=== PATIENT | female | born 1940 | race Caucasian/White ===

== ENCOUNTER 2023-01-04 18:20 | Inpatient (IN) | payer MEDICARE, OTHER ==
[~2023-01-04] VITALS: Ht 162.6 cm; Wt 49.9 kg
--- NOTE | 2023-01-04 18:40 | NUR ---
Patient AOx4 able to express her concerns. Patient states she is in no pain at the moment. Discussed plan of care and the need to mintor. Patient verbalized agreement.
[2023-01-04] MEDS ORDERED: IV NS 0.9% 1,000 ML BAG IV ONE ×2 (19:00→21:00)
--- NOTE | 2023-01-04 19:20 | NUR ---
Pt is noted in bed alert, responsive as report is received from the off going nurse that Pt came from a [facility] , Pt had Syncopal Epicode while sitting in a couch with Blood Gulose was 166. Pt care continue as she is will be admitted.
--- NOTE | 2023-01-04 20:01 | NUR ---
COVID ANTIGEN SWAB COLLECTED AND SENT TO LAB.
[2023-01-04 20:08] LABS: BASOPHILS % (AUTO) 0.3 % (0.0-2.0); EOSINOPHILS % (AUTO) 1.6 % (0.0-6.0); HEMATOCRIT 42 % (33-45); HEMOGLOBIN 13.5 g/dL (11.5-14.8); LYMPHOCYTES # (AUTO) 1.5 K/uL (0.8-4.8); LYMPHOCYTES % (AUTO) 9.7 % (20.0-44.0); MEAN CORPUSCULAR HGB CONC 32 g/dl (31.0-36.0); MEAN CORPUSCULAR VOLUME 94 fL (82-100); MONOCYTES # (AUTO) 0.6 K/uL (0.1-1.30); MONOCYTES % (AUTO) 4.1 % (2.0-12.0); NEUTROPHILS # (AUTO) 12.8 K/uL (1.8-8.9); NEUTROPHILS % (AUTO) 84.3 % (43.0-81.0); PLATELET COUNT (AUTO) 236 K/uL (150-450); RED BLOOD CELL COUNT(AUTO) 4.48 MIL/uL (4.0-5.2); WHITE BLOOD COUNT (AUTO) 15.2 K/uL (4.3-11.0)
[2023-01-04 20:28] LABS: ALANINE AMINOTRANSFERASE 14 U/L (12-78); ALKALINE PHOSPHATASE 74 U/L (46-116); ASPARTATE AMINOTRANSFERASE 13 U/L (15-37); BILIRUBIN,DIRECT 0.1 mg/dL (0.0-0.2); BILIRUBIN,TOTAL 0.6 mg/dL (0.2-1.0); CARBON DIOXIDE 22 mmol/L (21-32); CHLORIDE 107 mmol/L (98-107); CREATININE 1.2 mg/dL (0.6-1.3); GLUCOSE 125 mg/dL (74-106); POTASSIUM 3.7 mmol/L (3.5-5.1); SODIUM SERUM 142 mmol/L (136-145); TOTAL PROTEIN, SERUM 7.7 g/dL (6.4-8.2); UREA NITROGEN, BLOOD 23 mg/dL (7-18)
--- NOTE | 2023-01-04 21:21 | NUR ---
0.9NS 500ML BOLUS GIVEN FOR LACTIC ACID 2.9 ORDERED BY MD. PT CARE CONTINUE AWAITS BED FOR ADMISSION.
[2023-01-04] MEDS ORDERED: MAG HYDROX/AL HYDROX/SIMETH 30 ML UDC PO PRN (21:30)
[2023-01-04] MEDS ORDERED: ZOLPIDEM TARTRATE 5 MG TABLET PO PRN (21:30)
[2023-01-04] MEDS ORDERED: Z GUARD REMEDY 4 OZ OINT TP PRN (21:30)
[2023-01-04] MEDS ORDERED: ACETAMINOPHEN 325 MG TABLET PO PRN (21:30)
[2023-01-04] MEDS ORDERED: MAGNESIUM HYDROXIDE 30 ML UDC PO PRN (21:30)
[2023-01-04] MEDS ORDERED: ONDANSETRON HCL/PF 4 MG/2 ML VIAL IVP PRN (21:30)
[2023-01-04 21:56] LABS: BILIRUBIN,URINE NEGATIVE (NEGATIVE); COLOR,URINE YELLOW (YELLOW); LEUKOCYTE ESTERASE ,URINE TRACE (NEGATIVE); NITRITE, URINE NEGATIVE (NEGATIVE); PROTEIN,URINE 2+ mg/dl (NEGATIVE); UGLUCOSE NEGATIVE (NEGATIVE); UROBILINOGEN,URINE 0.2 EU/dL (0.2)
--- NOTE | 2023-01-04 21:56 | NUR ---
Pt care continue as report is given to the 3rd Floor RN Coretta as she is going to Tele room 310-2.
[2023-01-04] MEDS ORDERED: ENOXAPARIN SODIUM 30 MG/0.3 ML DISP.SYRIN SQ SCH (22:00)
[2023-01-04 22:12] LABS: BACTERIA,URINE None seen /HPF (None Seen); MUCUS,URINE Few /LPF (None Seen); RBC,URINE 0-2 /HPF (0-2); SQUAMOUS EPITHELIAL CELL,UR 0-2 /HPF (None Seen)
--- NOTE | 2023-01-04 22:25 | NUR ---
Pt is noted off the unit to the 3rd Floor Room 310-2 as shec is been admitted. Pt care continue.
[2023-01-04 22:30] VITALS: BP 140/82
[2023-01-04] MEDS: IV 1/2NS 1000 ML 1,000 ML IV PRN (22:51)
--- NOTE | 2023-01-04 23:00 | NUR ---
WORKERS' COMPENSATION MAGISTRATEWRITER PRODUCER NOTE RECEIVED REPORT FROM SAIRA RODRIGUEZ. PATIENT WAS BROUGHT TO THE UNIT AT AROUND 2230 VIA STRETCHER, ACCOMPANIED BY ER STAFF. PATIENT WAS BROUGHT TO THE HOSPITAL D/T SYNCOPAL EPISODE. PATIENT IS ALERT AND ORIENTED X2. ABLE TO MAKE NEEDS KNOWN. AFEBRILE AND NOT IN ANY FORM OF ACUTE DISTRESS. BREATHING EVEN AND NON LABORED. PATIENT IS LEGALLY BLIND (BOTH EYES). DIRECTED TO ROOM 310-2. EXPLAINED ADMISSION PROCESS INCLUDING SKIN ASSESSMENT AND AGREED TO IT. PATIENT'S SKIN IS INTACT. WITH IV ACCESS ON LAC -. DUE MEDS GIVEN ORDERED. STARTED WITH IV HYDRATION ON 09/05 NS AT 75ML/HR. SAFETY MEASURES IN PLACE. KEPT BED IN LOCKED AND IN LOW POSITION. SIDE RAILS UP X2. ADVISED TO USE THE CALL LIGHT WHEN IN NEED OF ASSISTANCE. BED ALARM ON.
[2023-01-04] MEDS ORDERED: CEFTRIAXONE 1GM BAG (ER ONLY) 50 ML IV ONE (23:09)
[2023-01-04] MEDS: CEFTRIAXONE 1 G in IV D5W 50 ML IV SCH (23:12)
[2023-01-04 23:43] VITALS: BP 140/82
[2023-01-05] VITALS (8 sets, daily range): BP systolic 121–147; BP diastolic 51–91
[2023-01-05] MEDS ORDERED: CEFTRIAXONE 1 G in IV D5W 50 ML IV SCH ×2
--- NOTE | 2023-01-05 06:30 | NUR ---
HUMAN RESOURCES DIRECTOR CLOSING NOTE PATIENT IN BED, ASLEEP BUT EASY TO AROUSE AND RESPONSIVE. ABLE TO MAKE NEEDS KNOWN. AFEBRILE AND NOT IN ANY FORM OF ACUTE DISTRESS. BREATHING EVEN AND NON LABORED. NO C/O PAIN OR DISCOMFORT THROUGHOUT THE SHIFT. ON TELE MONITORING [facility] CURRENT READING OF [facility]. WITH IV ACCESS ON LAC 20G RUNNING WITH 1/2 NS AT 75ML/HR. MEDICATED ORDERED. CONTINUOUS ON IV ATB, MONITORED FOR ANY ADVERSE REACTION. SAFETY MEASURES IN PLACE. KEPT BED IN LOCKED AND IN LOW POSITION. SIDE RAILS UP X2. ADVISED TO USE THE CALL LIGHT WHEN IN NEED OF ASSISTANCE. ALL NURSING NEEDS ATTENDED. ENDORSED TO INCOMING SHIFT FOR CONTINUITY OF CARE.
[2023-01-05 07:22] LABS: BASOPHILS % (AUTO) 0.4 % (0.0-2.0); HEMATOCRIT 37 % (33-45); HEMOGLOBIN 12.1 g/dL (11.5-14.8); LYMPHOCYTES # (AUTO) 1.1 K/uL (0.8-4.8); LYMPHOCYTES % (AUTO) 8.1 % (20.0-44.0); MEAN CORPUSCULAR HGB CONC 33 g/dl (31.0-36.0); MEAN CORPUSCULAR VOLUME 92 fL (82-100); MONOCYTES # (AUTO) 0.6 K/uL (0.1-1.30); MONOCYTES % (AUTO) 4.6 % (2.0-12.0); NEUTROPHILS # (AUTO) 11.3 K/uL (1.8-8.9); NEUTROPHILS % (AUTO) 86.9 % (43.0-81.0); PLATELET COUNT (AUTO) 227 K/uL (150-450)
--- NOTE | 2023-01-05 07:25 | NUR ---
DURALUMIN MECHANIC OPENING NOTE Received pt in bed, awake. A/O x 2, able to make needs known, both eyes legally blind. No c/o pain/discomfort at this time. On room air, tolerating well. On phototypesetting equipment monitor with current reading SR-ST-98. IV access in the lac #20g with ongoing ivf of 1/2NS at 75 ml/hr, infusing well. Safety measures implemented: bed in lowest locked position, side rails up x 3, call light and tray table within easy reach. Will continue to monitor.
[2023-01-05 07:40] LABS: CALCIUM, SERUM 8.6 mg/dL (8.5-10.1); CREATININE 0.9 mg/dL (0.6-1.3); MAGNESIUM 1.9 mg/dL (1.8-2.4); PHOSPHORUS 3.5 mg/dL (2.5-4.9); POTASSIUM 3.4 mmol/L (3.5-5.1)
[2023-01-05] MEDS: PANTOPRAZOLE 40 MG TABLET.DR PO SCH (07:47)
[2023-01-05] MEDS: CEFTRIAXONE 1 G in IV D5W 50 ML IV SCH (09:32)
[2023-01-05] MEDS ORDERED: POTASSIUM CHLORIDE 20 MEQ POWDER PACKET PO ONE (10:00)
[2023-01-05] MEDS ORDERED: POLY17PO4 PO (10:32)
[2023-01-05] MEDS ORDERED: CHOL100043 PO (10:32)
[2023-01-05] MEDS ORDERED: AMLO-212 PO (10:32)
[2023-01-05] MEDS ORDERED: ASCO-340 PO (10:32)
[2023-01-05] MEDS ORDERED: MEGE40TA5 PO (10:32)
[2023-01-05] MEDS ORDERED: MULT-447 PO (10:32)
[2023-01-05] MEDS ORDERED: CLON0.1T PO (10:32)
[2023-01-05] MEDS ORDERED: MELA3TAB41 PO (10:32)
[2023-01-05] MEDS ORDERED: LEVO50TA8 PO (10:32)
[2023-01-05] MEDS ORDERED: ACET-868 PO (10:32)
[2023-01-05] MEDS: LEVOTHYROXINE SODIUM 88 MCG TABLET PO SCH (14:49)
[2023-01-05] MEDS: ENSURE ENLIVE CHOC 237 ML CAN PO SCH (17:18)
[2023-01-05] MEDS: IV 1/2NS 1000 ML 1,000 ML IV PRN (17:22)
--- NOTE | 2023-01-05 18:46 | NUR ---
MEDICAL DOCTOR MD/MEDICAL DIRECTOR CLOSING NOTE Pt resting in bed. A/O x 2, able to make needs known, both eyes legally blind. No c/o pain/discomfort within the shift. On room air, tolerating well. On playground monitor with current reading SR-83. IV access in the lfa #22g with ongoing ivf of 1/2NS at 75 ml/hr, infusing well. Needs attended. Safety measures implemented: bed in lowest locked position, side rails up x 3, call light and tray table within easy reach. Will endorse junior to golf ball cover treater.
--- NOTE | 2023-01-05 19:40 | NUR ---
fish processing supervisor Opening Note Received patient in bed; awake, a/o x 2. Able to make needs known. Both eyes legally blind. On room air; tolerating well. Breathing evenly and nonlabored. No c/o pain or discomfort at this time. On telemetry monitoring with current reading of SR-99 bpm. With IV access on left antecubital 22g; patent and intact running with 0.45% NS 1L regulated at 75 ml/hr; flushing well. Safety precautions implemented: call light and table within reach, side rails up x 3, bed in lowest locked position. Will continue to monitor throughout shift.
[2023-01-05] MEDS: ENOXAPARIN SODIUM 40 MG/0.4 ML DISP.SYRIN SQ SCH ×2 (21:53→21:59)
--- NOTE | 2023-01-05 22:03 | NUR ---
RN Note Patient refused to receive Lovenox 40 mg. Explained risk and benefits of following medical regimen x 3; still refused to receive medication.
[2023-01-06] VITALS (7 sets, daily range): BP systolic 127–167; BP diastolic 50–82
--- NOTE | 2023-01-06 02:30 | NUR ---
RN Note Patient refused 0200 Lactic acid blood draw. Will try to draw again at 0500. CN Geena aware.
--- NOTE | 2023-01-06 06:40 | NUR ---
riveting machine operator automatic Closing Note Patient in bed; awake, a/o x 2. Stable on room air. In no acute distress. Denies any pain or discomfort at this time. On telemetry monitoring with current reading of SR-84 bpm. With IV access on left antecubital 22g; intact and patent running with 0.45% NS 1L regulated at 75 ml/hr; flushes well. Safety precautions maintained: call light and table within reach, side rails up x 3, bed in lowest locked position. Endorsed to morning shift for continuity of care.
[2023-01-06] MEDS: IV 1/2NS 1000 ML 1,000 ML IV PRN (07:06)
--- NOTE | 2023-01-06 07:35 | NUR ---
INSTRUCTOR PROGRAMMABLE CONTROLLERS OPENING NOTE Received pt in bed, awake. A/O x 2, able to make needs known, both eyes legally blind. No c/o pain/discomfort at this time. On room air, tolerating well. On humane agent with current reading SR-ST- 86 . IV access in the lac #20g with ongoing ivf of 1/2NS at 75 ml/hr, infusing well. Safety measures implemented: bed in lowest locked position, side rails up x 3, call light and tray table within easy reach. Will continue to monitor.
[2023-01-06] MEDS: LEVOTHYROXINE SODIUM 88 MCG TABLET PO SCH (08:22)
[2023-01-06] MEDS: PANTOPRAZOLE 40 MG TABLET.DR PO SCH (08:22)
[2023-01-06] MEDS: ENSURE ENLIVE CHOC 237 ML CAN PO SCH ×2 (08:27→17:06)
[2023-01-06] MEDS: CEFTRIAXONE 1 G in IV D5W 50 ML IV SCH (10:04)
--- NOTE | 2023-01-06 18:31 | NUR ---
PLANT QUALITY MANAGERHORSE BREEDER NOTES PATIENT ON BED , A/OX2 , AND VERBALLY RESPONSIVE , LEGALLY BLIND ON ROOM AIR WITH NO SOB OR DISTRESS NOTED , NO C/ O OF PAIN AND DISCOMFORT, ALL DUE MEDS GIVEN ORDERED , PATIENT WAS SEEN BY DR HIGGINBOTHAM AND WITH ORDER FOR DISCHARGE TO THE FACILITY AT [facility] , DISCHARGE PAPERS PREPARED AND INSTRUCTIONS PROVIDED TO THE PATIENT AND REQUESTED TO HAVE A REGULAR DIET , AND TO THE RN IN FACILITY TO [place] , ALL BELONGINGS WERE TAKEN AND FOR WAS SIGNED BY TWO NURSES , SKIN IS INTACT , REPORT WAS GIVEN TO THE EMT AND PATIENT LEFT WITH NO C/O OF PAIN AND DISCOMFORT AND IN A STABLE CONDITION IV ACCES AND CONVEYOR WORKER REMOVED AND ID BADGE REMOVED , LEFT VIA GURNEY WITH EMT ,
== END 2023-01-06 18:33 | DRG 872 ==
LOC: ER 18:22 → TELE 21:45
PROVIDERS: ADMIT Student in an Organized Health Care Education/Training Program; ATTEND Internal Medicine
DX: A41.9 Sepsis, unspecified organism (principal); N39.0 Urinary tract infection, site not specified; E44.0 Moderate protein-calorie malnutrition; I50.30 Unspecified diastolic (congestive) heart failure; E87.20 Acidosis, unspecified; Z68.1 Body mass index [BMI] 19.9 or less, adult; R64 Cachexia; N17.9 Acute kidney failure, unspecified; R79.89 Other specified abnormal findings of blood chemistry; E86.0 Dehydration; Z20.822 Contact with and (suspected) exposure to COVID-19; F31.9 Bipolar disorder, unspecified; I11.0 Hypertensive heart disease with heart failure; Z66 Do not resuscitate; E03.9 Hypothyroidism, unspecified; R41.3 Other amnesia; F39 Unspecified mood [affective] disorder; R19.7 Diarrhea, unspecified; E87.6 Hypokalemia; H54.8 Legal blindness, as defined in USA
CPT/HCPCS: 36415; 70450-TC; 71045-TC; 80048-TC; 80076-TC; 81001; 83605-TC; 83735-TC; 84100-TC; 84439-TC; 84443-TC; 84484-TC; 85025-TC; 85730-TC; 87040-TC; 87081-TC; 87086-TC; 93307-TC; 93880-TC; 97112-TC; 97116-TC; 97530-TC; A4223; C9803; G0378; J0696; J1650; J3490; J7060